=== PATIENT | female | born 1965 | race Asian ===

== ENCOUNTER 2023-04-13 11:17 | Day surgery (SDC) | payer OTHER ==
[~2023-04-13] VITALS: Ht 162.6 cm; Wt 72.6 kg
[2023-04-13] MEDS ORDERED: MIDAZOLAM 2 MG/2 ML VIAL ONE ×2 (12:39)
[2023-04-13] MEDS ORDERED: fentaNYL citrate 0.05 MG/ML VIAL ONE (12:39)
[2023-04-13] MEDS ORDERED: diphenhydrAMINE 50 MG/ML VIAL ONE (12:39)
[2023-04-13] MEDS ORDERED: fentaNYL citrate 0.05 MG/ML VIAL IVP ONE (15:20)
[2023-04-13] MEDS ORDERED: MIDAZOLAM 2 MG/2 ML VIAL IVP ONE (15:20)
== END 2023-04-13 13:50 | disposition home or self-care (01) ==
LOC: MDS 11:17 → MMU 11:18 → MDS 13:50
PROVIDERS: ATTEND Internal Medicine Gastroenterology
DX: R10.13 Epigastric pain (principal); K29.70 Gastritis, unspecified, without bleeding; K31.89 Other diseases of stomach and duodenum; K21.9 Gastro-esophageal reflux disease without esophagitis; K44.9 Diaphragmatic hernia without obstruction or gangrene; I10 Essential (primary) hypertension; Z86.010 Personal history of colon polyps; Z88.1 Allergy status to other antibiotic agents; Z79.899 Other long term (current) drug therapy
CPT/HCPCS: 43239; 82948; J2250; J3010; 88305; 88312; 88313; 88342; J1200